=== PATIENT | female | born 1960 | race Caucasian/White ===

== ENCOUNTER 2018-01-26 15:13 | Emergency (ER) | payer OTHER ==
[~2018-01-26] VITALS: Ht 157.5 cm; Wt 92.5 kg
[2018-01-26 15:42] VITALS: Ht 157.5 cm; Wt 92.5 kg
[2018-01-26 17:07] LABS: BASOPHIL % 0.4 % (0-2); PLATELET COUNT 132 x10^3mcL (130-400)
[2018-01-26 17:11] LABS: CALCIUM 8.4 mg/dL (8.5-10.1); CARBON DIOXIDE 27.7 mmol/L (21-32); CREATININE SERUM 1.7 mg/dL (0.6-1.0)
[2018-01-26 17:15] LABS: ALBUMIN 3.6 g/dL (3.4-5.0); BILIRUBIN TOTAL 0.32 mg/dL (0.20-1.00); TOTAL PROTEIN, SERUM 7.8 g/dL (6.4-8.2)
[2018-01-26 18:55] VITALS: BP 115/67
== END 2018-01-26 18:55 | disposition home or self-care (01) ==
LOC: ED 15:13
PROVIDERS: Emergency Medicine
DX: K52.9 Noninfective gastroenteritis and colitis, unspecified (principal); N18.3 Chronic kidney disease, stage 3 (moderate); E07.9 Disorder of thyroid, unspecified
CPT/HCPCS: 87804; J1885; J2405; J7030

== ENCOUNTER 2020-01-19 18:56 | Emergency (ER) | payer OTHER ==
[~2020-01-19] VITALS: Ht 162.6 cm; Wt 90.7 kg
[2020-01-19 19:01] VITALS: Ht 162.6 cm; Wt 90.7 kg
[2020-01-19 20:03] LABS: BASOPHIL % 0.3 % (0-2); PLATELET COUNT 159 x10^3mcL (130-400); RED CELL DISTRIBUTION WIDTH 13.6 % (11.5-14.5)
[2020-01-19 20:26] LABS: CALCIUM 6.6 mg/dL (8.5-10.1); CARBON DIOXIDE 25.1 mmol/L (21-32); CREATININE SERUM 2.1 mg/dL (0.6-1.0); POTASSIUM SERUM 3.9 mmol/L (3.5-5.1)
[2020-01-19 20:31] LABS: ALBUMIN 3.4 g/dL (3.4-5.0); BILIRUBIN TOTAL 0.2 mg/dL (0.20-1.00); TOTAL PROTEIN, SERUM 7.7 g/dL (6.4-8.2)
[2020-01-19 20:49] LABS: microscopic required? YES; urine erythrocyte TRACE (NEGATIVE)
--- NOTE | 2020-01-19 21:35 | NUR ---
UNABLE TO OBTAIN ABG. DR FERNANDES MADE AWARE.
[2020-01-19 22:16] VITALS: BP 120/64
== END 2020-01-19 22:46 | disposition home or self-care (01) ==
LOC: ED 18:56
PROVIDERS: Emergency Medicine
DX: B34.9 Viral infection, unspecified (principal); N18.3 Chronic kidney disease, stage 3 (moderate); R06.02 Shortness of breath
CPT/HCPCS: 83880; 87804; Q0092; U0002

== ENCOUNTER 2020-09-03 16:34 | Emergency (ER) | payer OTHER ==
[~2020-09-03] VITALS: Ht 152.4 cm; Wt 88.9 kg
[2020-09-03 16:46] VITALS: Ht 152.4 cm; Wt 88.9 kg
[2020-09-03 17:21] LABS: CALCIUM 10.8 mg/dL (8.5-10.1); CARBON DIOXIDE 23.4 mmol/L (21-32); CREATININE SERUM 3.6 mg/dL (0.6-1.0); POTASSIUM SERUM 3.7 mmol/L (3.5-5.1)
[2020-09-03 17:44] LABS: BASOPHIL % 0.3 % (0-2); PLATELET COUNT 116 x10^3mcL (130-400); RED CELL DISTRIBUTION WIDTH 16.5 % (11.5-14.5)
[2020-09-03 18:40] VITALS: BP 118/64
== END 2020-09-03 18:40 | disposition home or self-care (01) ==
LOC: ED 16:34
PROVIDERS: Emergency Medicine
DX: M54.5 Low back pain (principal); N18.30 Chronic kidney disease, stage 3 unspecified
CPT/HCPCS: J2270; J2405; J7030